=== PATIENT | male | born 2000 | race Caucasian/White ===

== ENCOUNTER 2020-06-09 18:14 | Emergency (ER) | payer BC ==
[2020-06-09 18:25] VITALS: PULSE 72; TEMP 98.4; BMI 24.3
[2020-06-09] MEDS ORDERED: FAMOTIDINE 20 MG/50 ML IVPB 20 MG/50 ML MG IVPB ONE ×2 (19:51→20:32)
[2020-06-09] MEDS ORDERED: MAG HYDROX/AL HYDROX/SIMETH 30 ML UNIT-DOSE CUP PO ONE (19:51)
[2020-06-09] MEDS ORDERED: SODIUM CHLORIDE 0.9% 500 ML INFUS.BAG IV ONE (19:51)
[2020-06-09] MEDS ORDERED: MAG HYDROX/AL HYDROX/SIMETH 30 ML UNIT-DOSE CUP ONE (20:32)
[2020-06-09 21:03] LABS: BASO % 0.5 % (0-2.0); HEMATOCRIT 40.4 % (35.4-49); HEMOGLOBIN 13.9 GM/dL (11.7-16.9); LYMPH % 30.3 % (8-40); MCH 29.3 pg (25.7-33.7); MCHC 34.5 g/dl (32.0-35.9); MEAN CELL VOLUME 84.8 fl (80-96); MEAN PLT VOLUME 8.1 fl (7.5-11.1); MONO % 8.4 % (3.8-10.2); NEUT % 58.8 % (42.8-82.8); PLATELET COUNT 275 K/MM3 (134-434); RBC 4.76 M/mm3 (4.00-5.60); RDW 13.4 % (11.9-15.9)
[2020-06-09 21:23] LABS: POTASSIUM 3.7 mmol/L (3.5-5.1)
[2020-06-09 21:25] LABS: CALCIUM 8.8 mg/dL (8.5-10.1)
[2020-06-09 21:26] LABS: ALBUMIN 4.5 g/dl (3.4-5.0)
[2020-06-09 21:28] LABS: CREATININE 0.9 mg/dL (0.55-1.3)
[2020-06-09 21:30] LABS: BILIRUBIN,TOTAL 0.9 mg/dL (0.2-1); TOT PROT 7.6 g/dl (6.4-8.2)
[2020-06-09 21:59] VITALS: BP 109/62
== END 2020-06-09 21:55 | disposition home or self-care (01) ==
LOC: JER 18:14
PROC: 3E033NZ Introduction of Analgesics, Hypnotics, Sedatives into Peripheral Vein, Percutaneous Approach (ICD-10-PCS; principal; 2020-06-09)
DX: K52.9 Noninfective gastroenteritis and colitis, unspecified (principal)
CPT/HCPCS: 36415; 80053; 83690; 85025; 99284-25

== ENCOUNTER 2023-01-19 11:06 | Emergency (ER) | payer BC ==
[2023-01-19 11:22] VITALS: BP 132/62; PULSE 98; RESP 17; TEMP 98.7; BMI 26.8
[2023-01-19] MEDS ORDERED: ACETAMINOPHEN 325 MG TABLET (FP) ONE (12:04)
[2023-01-19] MEDS ORDERED: AMOXICILLIN 250 MG CAPSULE ONE (12:04)
[2023-01-19] MEDS ORDERED: DEXAMETHASONE SOD PHOSPHATE 10 MG/1 ML VIAL ONE (12:04)
[2023-01-19] MEDS ORDERED: AMOXICILLIN 500 MG CAPSULE (FP) PO ONE (12:15)
[2023-01-19] MEDS ORDERED: DEXAMETHASONE LIQUID 0.5 MG/5 ML PO ONE (12:15)
[2023-01-19] MEDS ORDERED: ACETAMINOPHEN 325 MG TABLET (FP) PO ONE (12:15)
== END 2023-01-19 12:25 | disposition home or self-care (01) ==
LOC: JERFT 11:06
DX: J02.9 Acute pharyngitis, unspecified (principal); Z20.822 Contact with and (suspected) exposure to COVID-19
CPT/HCPCS: 0241U-QW; 87070; 87651; 99283-25